=== PATIENT | male | born 1955 | race Caucasian/White ===

== ENCOUNTER 2019-06-07 16:42 | Emergency (ER) | payer BC ==
[2019-06-07] MEDS ORDERED: NORMAL SALINE 1000 ML 1,000 ML IV PRN (17:03)
[2019-06-07 18:17] LABS: ALBUMIN 4.5 g/dL (3.5-5.0); ALKALINE PHOSPHATASE 80 U/L (38-126); ANION GAP 12 (5-19); ASPARTATE AMINO TRANSFERASE 24 U/L (17-59); BILIRUBIN,TOTAL 0.6 mg/dL (0.2-1.3); BLOOD UREA NITROGEN 18 mg/dL (7-20); CALCIUM 8.7 mg/dL (8.4-10.2); CARBON DIOXIDE 21 mmol/L (22-30); CHLORIDE 105 mmol/L (98-107); GLUCOSE 204 mg/dL (75-110); POTASSIUM 4.3 mmol/L (3.6-5.0); TOTAL PROTEIN 6.9 g/dL (6.3-8.2)
[2019-06-07] MEDS ORDERED: ONDANSETRON HCL INJ/PF 4 MG/2 ML SDV IV ONE (18:23)
[2019-06-07] MEDS ORDERED: KETOROLAC TROMETHAMINE INJ/PF 30 MG/1 ML SDV IV ONE (18:24)
[2019-06-07] MEDS ORDERED: NORMAL SALINE 1000 ML 1,000 ML IV ONE (18:24)
--- NOTE | 2019-06-07 18:25 | ER Document Report ---
ED GI/ - General TRAVEL OUTSIDE OF THE U.S. IN LAST 30 DAYS: No - Related Data Home Medications: lisinopril. crestor. metformin. jardance. cymbalta. sprycel <TEQUILA RUIZ - Last Filed: 06/07/19 19:54> - General TRAVEL OUTSIDE OF THE [place] IN LAST 30 DAYS: No <CARLOS REYNOLDS - Last Filed: 06/08/19 19:29> - General Chief Complaint: Nausea/Vomiting/Diarrhea Stated Complaint: VOMITING/DIARRHEA Time Seen by Provider: 06/07/19 16:54 Primary Care Provider: JONATHAN AYALA MD [Primary Care Provider] - Follow up in 3-5 days Notes: CHIEF COMPLAINT: Abdominal pain, vomiting, diarrhea HPI: 63-year-old male presenting for vomiting and diarrhea. Reports of epigastric tenderness. Patient has a history of type 2 diabetes, hypertension, appendectomy, leukemia in remission, takes Sprycel daily for this. Patient states that he had colonoscopy 1 week ago. Patient has had continued diarrhea since that time. States that began having vomiting episodes 3 days ago continues with nausea. Did not follow back up with gastroenterology. He states that he did have an appointment with his PCP for general checkup 3 weeks ago and everything was "normal". ROS: See HPI - all other systems were reviewed and are otherwise negative Constitutional: no fever Eyes: no drainage, no blurred vision ENT: no runny nose, no sore throat Cardiovascular: no chest pain Resp: no SOB, no cough GI: Positive vomiting, positive diarrhea, positive abdominal pain : no dysuria Integumentary: no rash Allergy: no hives Musculoskeletal: no extremity pain or swelling Neurological: no numbness/tingling, no weakness MEDICATIONS: I agree with the patient medications as charted by the RN. ALLERGIES: I agree with the allergies as charted by the RN. PAST MEDICAL HISTORY/PAST SURGICAL HISTORY: Reviewed and agree as charted by RN. SOCIAL HISTORY: Reviewed and agree as charted by RN. FAMILY HISTORY: No significant familial comorbid conditions directly related to patient complaint EXAM: Reviewed vital signs as charted by RN. CONSTITUTIONAL: Alert and oriented and responds appropriately to questions. Well-appearing; well-nourished, mild distress secondary to nausea HEAD: Normocephalic; atraumatic EYES: PERRL; Conjunctivae clear, sclerae non-icteric ENT: normal nose; no rhinorrhea; slightly dry mucous membranes; pharynx without lesions noted, no uvula edema or deviation, no tonsillar hypertrophy, phonation normal NECK: Supple without meningismus; non-tender; no cervical lymphadenopathy, no masses CARD: RRR; no murmurs, no clicks, no rubs, no gallops; symmetric distal pulses RESP: Normal chest excursion without splinting or tachypnea; breath sounds clear and equal bilaterally; no wheezes, no rhonchi, no rales, pulse oximetry 98% on room air not hypoxic ABD/GI: Hyperactive bowel sounds; non-distended; soft, mild epigastric tenderness on palpation, no rebound, no guarding; no palpable organomegaly or masses. BACK: The back appears normal and is non-tender to palpation, there is no CVA tenderness EXT: Normal ROM in all joints; non-tender to palpation; no cyanosis, no effusions, no edema SKIN: Normal color for age and race; warm; dry; good turgor; no acute lesions noted NEURO: Moves all extremities equally; Motor and sensory function intact PSYCH: The patient's mood and manner are appropriate. Grooming and personal hygiene are appropriate. MDM: 63-year-old male with nausea vomiting diarrhea over the last week after having colonoscopy a week ago. Patient states that his colonoscopy was fine and there were no polyps or concerns. He appears mildly dehydrated. Screening labs ordered via triage process. Will obtain KUB to evaluate for obstructive pattern. Will give Zofran, additional IV fluids and reassess (TEQUILA RUIZ) - Related Data Allergies/Adverse Reactions: No Known Allergies Allergy (Unverified 06/07/19 17:06) Past Medical History - Social History Smoking Status: Unknown if Ever Smoked Chew tobacco use (# tins/day): No Frequency of alcohol use: None Drug Abuse: None Patient has suicidal ideation: No Patient has homicidal ideation: No <TEQUILA RUIZ - Last Filed: 06/07/19 19:54> - Social History Family History: Reviewed & Not Pertinent <CARLOS REYNOLDS - Last Filed: 06/08/19 19:29> Physical Exam - Vital signs Vitals: Temp Pulse Resp BP Pulse Ox 97.5 F 94 18 128/87 H 95 06/07/19 16:47 06/07/19 16:47 06/07/19 16:47 06/07/19 16:47 06/07/19 16:47 Course - Laboratory Result Diagrams: 06/07/19 17:30 06/07/19 17:30 <TEQUILA RUIZ - Last Filed: 06/07/19 19:54> - Laboratory Result Diagrams: 06/07/19 17:30 06/07/19 17:30 <CARLOS REYNOLDS - Last Filed: 06/08/19 19:29> - Re-evaluation Re-evalutation: 06/07/19 19:34 Patient's lab work does not show acute emergent abnormalities. Awaiting KUB. Awaiting IV fluids, antiemetics, p.o. challenge and reassessment report was given to oncoming shift to follow and disposition 06/07/19 19:54 X-ray does not show evidence of an obstructive pattern on my review. (TEQUILA RUIZ) 06/07/19 21:58 KUB shows nonobstructive gas bowel gas pattern and mild colonic stool load. I discussed this finding with Dr. Claros, my attending and he is recommending the patient take Kaopectate for his diarrhea. I discussed this with the patient and he states that he is not interested in taking Kaopectate. We will send his stool for culture. I have very low suspicion for any life-threatening etiology at this time. Follow-up precautions were given. Verbal discharge instructions were given to the patient. They verbalized understanding. They are stable for discharge. (CARLOS REYNOLDS) - Vital Signs Vital signs: Temp Pulse Resp BP Pulse Ox 97.5 F 94 20 113/65 97 06/07/19 16:47 06/07/19 16:47 06/07/19 22:01 06/07/19 21:01 06/07/19 22:01 - Laboratory Laboratory results interpreted by me: 06/07/19 06/07/19 06/07/19 17:30 17:30 20:15 RDW 14.4 H Carbon Dioxide 21 L Glucose 204 H Urine Glucose (UA) >=500 H Urine Ketones TRACE H Discharge <TEQUILA RUIZ - Last Filed: 06/07/19 19:54> <CAROLS REYNOLDS - Last Filed: 06/08/19 19:29> - Discharge Clinical Impression: Nausea, Dehydration Diarrhea Qualifiers: Diarrhea type: unspecified type Qualified Code(s): R19.7 - Diarrhea, unspecified Vomiting Qualifiers: Vomiting type: unspecified Vomiting Intractability: non-intractable Nausea presence: with nausea Qualified Code(s): R11.2 - Nausea with vomiting, unspecified Condition: Stable Disposition: HOME, SELF-CARE Instructions: Antinausea Medication ([facility]), Vomiting ([facility]) Additional Instructions: You were seen today in the emergency department for nausea, vomiting, and diarrhea. Please follow-up with your primary care provider. Make sure you stay well-hydrated. If you continue to vomit, please return to the emergency department. Diarrhea becomes unbearable, you can take the counter Imodium. Your stool has been sent for culture. Forms: Return to Work Referrals: JONATHAN AYALA MD [Primary Care Provider] - Follow up in 3-5 days
[2019-06-07 18:31] LABS: ABSOLUTE EOSINOPHILS # (AUTO) 0.1 10^3/uL (0.0-0.6); ABSOLUTE LYMPHOCYTES (AUTO) 1.1 10^3/uL (0.5-4.7); ABSOLUTE MONOCYTES (AUTO) 0.7 10^3/uL (0.1-1.4); ABSOLUTE NEUT (AUTO) 6.3 10^3/uL (1.7-8.2); BASOPHILS % (AUTO) 0.4 % (0-2); EOSINOPHILS % (AUTO) 0.8 % (0-6); HEMATOCRIT 43.7 % (37.9-51.0); LYMPHOCYTES % (AUTO) 13.1 % (13-45); MEAN CORPUSCULAR HGB CONC 34.3 g/dL (32.0-36.0); MEAN CORPUSCULAR VOLUME 93 fl (80-97); MONOCYTES % (AUTO) 8.3 % (3-13); PLATELET COUNT 184 10^3/uL (150-450); RED BLOOD COUNT 4.69 10^6/uL (4.35-5.55); RED CELL DISTRIBUTION WIDTH 14.4 % (11.5-14.0); SEGMENTED NEUTROPHILS % (AUTO) 77.4 % (42-78); TOTAL CELLS COUNTED % (AUTO) 100 %; WHITE BLOOD COUNT 8.1 10^3/uL (4.0-10.5)
--- NOTE | 2019-06-07 20:18 | RADIOLOGY REPORT (SQ) ---
EXAM DESCRIPTION: XR ABDOMEN 2 VIEWS SUPINE ERECT COMPLETED DATE/TME: 06/07/2019 18:24 CLINICAL HISTORY: 63 years, Male, N/V/D COMPARISON: None. NUMBER OF VIEWS: 2 TECHNIQUE: 2 frontal radiographs were obtained LIMITATIONS: None. FINDINGS: Gas and a mild amount of stool are noted throughout the large bowel. Scattered nondilated loops of small bowel are visible throughout the abdomen. No suspicious soft tissue calcifications or osseous anomalies are appreciated. However, there are a few scattered phleboliths projecting over the pelvic inlet. IMPRESSION: Nonobstructive bowel gas pattern. Mild colonic stool load. copyright 2010 [employer]- All Rights Reserved
[2019-06-07 20:57] LABS: APPEARANCE,URINE CLEAR; BILIRUBIN,URINE NEGATIVE (NEGATIVE); COLOR,URINE YELLOW; GLUCOSE, URINE >=500 mg/dL (NEGATIVE); KETONES,URINE TRACE mg/dL (NEGATIVE); LEUKOCYTE ESTERASE,URINE NEGATIVE (NEGATIVE); NITRITE,URINE NEGATIVE (NEGATIVE); PROTEIN,URINE NEGATIVE (NEGATIVE); URINE SPECIFIC GRAVITY 1.028; UROBILINOGEN,URINE NEGATIVE mg/dL (<2.0)
[2019-06-07] MEDS ORDERED: ONDANSETRON ODT 4 MG TAB (6 TAB/ER DISP) PO PRN (21:54)
[2019-06-07 22:31] VITALS: BP 113/65
== END 2019-06-07 22:32 | disposition home or self-care (01) ==
LOC: ER 16:42
DX: R11.2 Nausea with vomiting, unspecified (principal); R19.7 Diarrhea, unspecified; E86.0 Dehydration; R10.9 Unspecified abdominal pain; R10.816 Epigastric abdominal tenderness; E11.9 Type 2 diabetes mellitus without complications; I10 Essential (primary) hypertension; C95.91 Leukemia, unspecified, in remission; Z79.899 Other long term (current) drug therapy; Z79.84 Long term (current) use of oral hypoglycemic drugs; Z90.49 Acquired absence of other specified parts of digestive tract
CPT/HCPCS: 99284; 96361; 96374; 96375; 36415; 87086; 83690; 85025; 80053; 81001; 74019; J1885; J2405; J7030

== ENCOUNTER 2019-12-18 16:04 | Day surgery (SDC) | payer BC ==
--- NOTE | 2019-12-18 16:31 | ER Document Report ---
ED Medical Screen (RME) - General Chief Complaint: Shortness Of Breath Stated Complaint: SHORTNESS OF BREATH/CHEST TIGHTNESS Time Seen by Provider: 12/18/19 16:19 Primary Care Provider: JONATHAN AYALA MD [Primary Care Provider] - Follow up as needed TRAVEL OUTSIDE OF THE [place].S[place] IN LAST 30 DAYS: No - HPI Notes: 12/18/19 16:30 64-year-old male with history of a LL and pleural effusion requiring thoracentesis to the emergency department with complaints of progressively worsening shortness of breath and chest tightness for the past several days. He states that he called his oncologist, Dr. Kerr, at [facility] and was told to come to the emergency department yesterday but he wanted to try to wait. He states that he has been on the same medicine for a LL for about 8 years but his oncologist thinks that maybe it is causing the pleural effusions. Back in October he had similar symptoms and had to have a thoracentesis where over 1 L of fluid was drained from his lungs. He states he starting to feel the same as he did back then. He is having exertional shortness of breath and feels full in his chest. He states he feels like he is "panting as well. Denies abdominal pain, nausea vomiting, fever or chills. - Related Data Allergies/Adverse Reactions: No Known Allergies Allergy (Unverified 06/07/19 17:06) Home Medications: Sprycel, Rosuvastatin, Duloxetine Past Medical History - Past Medical History Cardiac Medical History: Reports: Hx Hypertension Endocrine Medical History: Reports: Hx Diabetes Mellitus Type 2 Physical Exam - Vital signs Vitals: Pulse Resp BP Pulse Ox 76 18 161/81 H 97 12/18/19 16:19 12/18/19 16:19 12/18/19 16:19 12/18/19 16:19 Course - Vital Signs Vital signs: Temp Pulse Resp BP Pulse Ox 76 18 161/81 H 97 12/18/19 16:19 12/18/19 16:19 12/18/19 16:19 12/18/19 16:19 Doctor's Discharge - Discharge Referrals: JONATHAN AYALA MD [Primary Care Provider] - Follow up as needed
--- NOTE | 2019-12-18 17:52 | RADIOLOGY REPORT (SQ) ---
EXAM DESCRIPTION: CT CHEST WITHOUT IMAGES COMPLETED DATE/TIME: 12/18/2019 5:31 pm REASON FOR STUDY: SOB, hx of pleural effusion COMPARISON: None. TECHNIQUE: CT scan performed of the chest without intravenous contrast. Images reviewed with lung, soft tissue and bone windows. Reconstructed coronal and sagittal MPR images reviewed. All images st ored on PACS. All CT scanners at this facility use dose modulation, iterative reconstruction, and/or weight based d osing when appropriate to reduce radiation dose to as low as reasonably achievable (ALARA). [facility]: Dose Right [facility]: CareDose [facility]: Dose Right [facility]: Teradose 4D [facility]: Smart Comr.se RADIATION DOSE: CT Rad equipment meets quality standard of care and radiation dose reduction techniq ues were employed. CTDIvol: 17.4 mGy. DLP: 682 mGy-cm. mGy. LIMITATIONS: No technical limitations. FINDINGS: LUNGS AND PLEURA: Large right pleural effusion and moderate left pleural effusion. Mild a telectasis. HILAR AND MEDIASTINAL STRUCTURES: No identified masses or abnormal nodes. No obvious aneurysm. HEART AND VASCULAR STRUCTURES: No aneurysm. No pericardial effusion. UPPER ABDOMEN: No significant findings. Limited exam. THYROID AND OTHER SOFT TISSUES: No masses. No adenopathy. BONES: No significant finding. HARDWARE: None in the chest. OTHER: No other significant findings. IMPRESSION: LARGE RIGHT PLEURAL EFFUSION AND MODERATE LEFT PLEURAL EFFUSION. TECHNICAL DOCUMENTATION: JOB ID: [id number] Quality ID # [id number]: Final reports with documentation of one or more dose reduction techniques (e.g., Au tomated exposure control, adjustment of the mA and/or kV according to patient size, use of iterative reconstruction technique) 2010 [employer]- All Rights Reserved Reading location - IP/workstation name: [email or web address]
[2019-12-18 18:21] LABS: ABSOLUTE EOSINOPHILS # (AUTO) 0.1 10^3/uL (0.0-0.6); ABSOLUTE LYMPHOCYTES (AUTO) 0.7 10^3/uL (0.5-4.7); ABSOLUTE MONOCYTES (AUTO) 0.4 10^3/uL (0.1-1.4); ABSOLUTE NEUT (AUTO) 2.1 10^3/uL (1.7-8.2); EOSINOPHILS % (AUTO) 3.6 % (0-6); HEMATOCRIT 37.1 % (37.9-51.0); HEMOGLOBIN 12.7 g/dL (13.5-17.0); LYMPHOCYTES % (AUTO) 21.1 % (13-45); MEAN CORPUSCULAR HEMOGLOBIN 32.1 pg (27.0-33.4); MEAN CORPUSCULAR HGB CONC 34.3 g/dL (32.0-36.0); MEAN CORPUSCULAR VOLUME 94 fl (80-97); MONOCYTES % (AUTO) 11.4 % (3-13); PLATELET COUNT 162 10^3/uL (150-450); RED BLOOD COUNT 3.96 10^6/uL (4.35-5.55); RED CELL DISTRIBUTION WIDTH 14.4 % (11.5-14.0); SEGMENTED NEUTROPHILS % (AUTO) 62.9 % (42-78); TOTAL CELLS COUNTED % (AUTO) 100 %; WHITE BLOOD COUNT 3.4 10^3/uL (4.0-10.5)
[2019-12-18 18:31] LABS: INTERNATIONAL RATION (INR) 1.02; PROTHROMBIN TIME 13.6 SEC (11.4-15.4)
[2019-12-18 18:32] LABS: PARTIAL THROMBOPLASTIN TIME 28.8 SEC (23.5-35.8)
[2019-12-18 18:35] LABS: ALBUMIN 4.6 g/dL (3.5-5.0); ALKALINE PHOSPHATASE 60 U/L (38-126); ANION GAP 8 (5-19); ASPARTATE AMINO TRANSFERASE 26 U/L (17-59); BILIRUBIN,DIRECT 0.3 mg/dL (0.0-0.4); BILIRUBIN,TOTAL 0.6 mg/dL (0.2-1.3); BLOOD UREA NITROGEN 13 mg/dL (7-20); CALCIUM 9.5 mg/dL (8.4-10.2); CARBON DIOXIDE 29 mmol/L (22-30); CHLORIDE 102 mmol/L (98-107); GLUCOSE 186 mg/dL (75-110); POTASSIUM 4.6 mmol/L (3.6-5.0)
[2019-12-18] MEDS ORDERED: ACETAMINOPHEN 325 MG TABLET PO ONE (20:38)
[2019-12-18] MEDS ORDERED: DIPHENHYDRAMINE HCL 50 MG/ML VIAL IV ONE (20:39)
[2019-12-18] MEDS ORDERED: METOCLOPRAMIDE HCL INJ/PF 10 MG/2 ML SDV IV ONE (20:39)
--- NOTE | 2019-12-18 20:58 | ER Document Report ---
ED General - General Chief Complaint: Shortness Of Breath Stated Complaint: SHORTNESS OF BREATH/CHEST TIGHTNESS Time Seen by Provider: 12/18/19 16:19 TRAVEL OUTSIDE OF THE [place]. IN LAST 30 DAYS: No - HPI Notes: Patient is a 64-year-old male with a history of ALL, DMII, and HTN who presents for dyspnea on exertion and shortness of breath. Patient [facility] for the same symptoms. He was diagnosed with a right pleural effusion and had a thoracentesis performed. Patient states the fluid was tested and was determined to not be cancerous. He states he had 2 w eeks of relief with no CIFUENTES and SOB before it returned. He talked with oncologist, Dr. Kerr, at [facility] who believes his chemo medication, Sprycel (dasatinib), may be the cause of his pleural effusion as it is a known side effect. His oncologist lowered his dose from 100mg to 80mg and discussed that if he has a repeat pleural effusion his medication will have to be changed Patient returned to the ED today for a worsening of his CIFUENTES. He also reports headache, unproductive cough, chest discomfort but denies fever, nausea, vomiting and abdominal pain. Patient is currently taking lasix to help prevent repeat effusions. - Related Data Allergies/Adverse Reactions: No Known Allergies Allergy (Unverified 06/07/19 17:06) Home Medications: Sprycel, Rosuvastatin, Duloxetine Past Medical History - General Information source: Patient - Social History Smoking Status: Former Smoker Frequency of alcohol use: None Drug Abuse: Marijuana Family History: Reviewed & Not Pertinent - Past Medical History Cardiac Medical History: Reports: Hx Hypertension Endocrine Medical History: Reports: Hx Diabetes Mellitus Type 2 Review of Systems - Review of Systems Constitutional: No symptoms reported EENT: No symptoms reported Cardiovascular: See HPI Respiratory: See HPI Gastrointestinal: No symptoms reported Genitourinary: No symptoms reported Male Genitourinary: No symptoms reported Musculoskeletal: No symptoms reported Skin: No symptoms reported Hematologic/Lymphatic: No symptoms reported Neurological/Psychological: See HPI Physical Exam - Vital signs Vitals: Pulse Resp BP Pulse Ox 76 18 161/81 H 97 12/18/19 16:19 12/18/19 16:19 12/18/19 16:19 12/18/19 16:19 - Notes Notes: PHYSICAL EXAMINATION: VITALS: Vitals reviewed and within normal limits. GENERAL: Well-appearing, well-nourished and in no acute distress. HEAD: Atraumatic, normocephalic. EYES: Pupils equal round and reactive to light, extraocular movements intact, sclera anicteric, conjunctiva are normal. ENT: nares patent, oropharynx clear without exudates. Moist mucous membranes. NECK: Normal range of motion, supple without lymphadenopathy. LUNGS: Breath sounds clear to auscultation bilaterally and equal. No wheezes rales or rhonchi. HEART: Regular rate and rhythm without murmurs. ABDOMEN: Soft, nontender, normoactive bowel sounds. No guarding, no rebound. No masses appreciated. EXTREMITIES: Normal range of motion, no pitting or edema. No cyanosis. NEUROLOGICAL: No focal neurological deficits. Moves all extremities spontaneously and on command. PSYCH: Normal mood, normal affect. SKIN: Warm, Dry, normal turgor, no rashes or lesions noted. Course - Re-evaluation Re-evalutation: Patient is a 64-year-old male with a history of ALL and DMII who presents with worsening dyspnea on exertion. Patient has a history of right pleural effusion with thoracentesis which is believed to be due to his chemo medication, Sprycel. On exam, lung sounds are clear to auscultation bilaterally with nonlabored respirations. Patient is complaining of headache, orders placed for Tylenol 975mg PO, Benadryl 12.5mg IV, and Reglan 10mg IV. Vital signs are within normal limits. Leukocytopenia with a WBC of 3.5. proBNP barely elevated at 129. Troponin negative. CT chest shows large right pleural effusion and moderate left pleural effusion. I discussed the patient with Dr. Boston, hospitalist, and he agrees with admission for therapeutic thoracentesis. Patient will be admitted inpatient to the medical floor. - Vital Signs Vital signs: Temp Pulse Resp BP Pulse Ox 76 12 139/86 H 98 12/18/19 16:19 12/18/19 23:01 12/18/19 23:01 12/18/19 23:01 - Laboratory Result Diagrams: 12/18/19 18:00 12/18/19 18:00 Laboratory results interpreted by me: 12/18/19 12/18/19 12/18/19 18:00 18:00 18:00 WBC 3.4 L RBC 3.96 L Hgb 12.7 L Hct 37.1 L RDW 14.4 H Glucose 186 H NT-Pro-B Natriuret Pep 129 H - Diagnostic Test Radiology reviewed: Image reviewed, Reports reviewed Radiology results interpreted by me: Chest CT 12/18/19 16:29 IMPRESSION: LARGE RIGHT PLEURAL EFFUSION AND MODERATE LEFT PLEURAL EFFUSION. - EKG Interpretation by Me Additional EKG results interpreted by me: Sinus rhythm with a rate of 66. QTc 415. Normal axis. No T wave inversions or ST segment changes in consecutive leads. Discharge - Discharge Clinical Impression: Pleural effusion Dyspnea Qualifiers: Dyspnea type: dyspnea on exertion Qualified Code(s): R06.00 - Dyspnea, unspecified ALL (acute lymphoblastic leukemia) Qualifiers: Leukemia Active/Remission status: in remission Qualified Code(s): C91.01 - Acute lymphoblastic leukemia, in remission Condition: Stable Disposition: ADMITTED INPATIENT Admitting Provider: Ludy (Hospitalist) Unit Admitted: Medical Floor
[2019-12-18 21:16] LABS: NT PRO BNP 129 pg/mL (<125)
[2019-12-18 21:19] LABS: TROPONIN I < 0.012 ng/mL
[2019-12-18] MEDS ORDERED: PROMETHAZINE HCL INJ 25 MG/1 ML VIAL IV PRN (21:56)
[2019-12-18] MEDS ORDERED: ACETAMINOPHEN 325 MG TABLET PO PRN (21:56)
[2019-12-18] MEDS ORDERED: OXYCODONE-ACETAMINOPHEN 5-325 MG TABLET PO PRN (21:56)
[2019-12-18] MEDS ORDERED: IPRATROPIUM/ALBUTEROL 0.5-2.5 MG/3 ML AMPUL NEB PRN (21:56)
[2019-12-18] MEDS ORDERED: ONDANSETRON HCL INJ/PF 4 MG/2 ML SDV IV PRN (21:56)
[2019-12-18] MEDS ORDERED: HEPARIN SOD (PORCINE) 5,000 UNIT/ML 1 ML VIAL SUBCUT SCH (22:00)
[2019-12-18] MEDS ORDERED: HYDRALAZINE HCL INJ/PF 20 MG/1 ML SDV IV PRN (22:03)
[2019-12-18] MEDS ORDERED: METOPROLOL TARTRATE PF/INJ 5 MG/5 ML SDV IV PRN (22:03)
[2019-12-18] MEDS ORDERED: GUAIFENESIN 600 MG TABLET.SA PO ONE (23:00)
[2019-12-18] MEDS ORDERED: LORAZEPAM INJ 2 MG/1 ML VIAL IV PRN (23:11)
[2019-12-19] MEDS ORDERED: DEXTROSE 40% GEL 15 GM TUBE PO PRN ×2 (04:26)
[2019-12-19] MEDS ORDERED: GLUCAGON,HUMAN RECOMB 1 MG INJ IM PRN (04:26)
[2019-12-19] MEDS ORDERED: DEXTROSE 50%-WATER 25 GM/50 ML DISP.SYRIN IV PRN ×2 (04:26)
--- NOTE | 2019-12-19 04:33 | PDOC H&P ---
History of Present Illness Admission Date/PCP: 12/18/19 21:59 JONATHAN AYALA MD History of Present Illness: RIKKI SALVADOR is a 64 year old male past medical history of hypertension, diab etes, acute lymphocytic leukemia diagnosed in 2011, on Sprycel for the last 8- 1/2 years, patient is followed by Dr. Kerr at [facility], stating that he was doing fine about a month ago he developed pleural effusion which as per his oncologist it was attributed to Sprycel, Sprycel dosage was decreased however patient continued to have dyspnea on exertion, nonproductive cough, not being able to do much without getting severely short of breath, patient presented to ED a chest CT showed recurrence of severe right-sided and left-sided pleural effusion. Hospitalist was consulted for admission. On my encounter patient is currently receiving apparent distress, denies any fever, chest pain, chills, nausea, vomiting, diarrhea, constipation or any urinary symptoms. Complaining of dyspnea on exertion associated with nonproductive cough. Patient anxious about being admitted, stating that his last thoracentesis was done as outpatient. Patient agreed to be admitted and stating that he would like to be discharged home after thoracentesis. Patient was advised that he may be sent home after thoracentesis if no adverse effect caused by thoracentesis and he is stable. Patient voiced understanding. Past Medical History Cardiac Medical History: Reports: Hypertension Endocrine Medical History: Reports: Diabetes Mellitus Type 2 Psychiatric Medical History: Denies: Depression Social History Smoking Status: Former Smoker Electronic Cigarette use?: No Last Time Smoked: 11/25/1999 Frequency of Alcohol Use: Rare Hx Recreational Drug Use: No Drugs: None Hx Prescription Drug Abuse: No Family History Family History: Reviewed & Not Pertinent Parental Family History Reviewed: Yes Children Family History Reviewed: Yes Sibling(s) Family History Reviewed.: Yes Medication/Allergy Home Medications: Duloxetine HCl [Cymbalta] 90 mg PO DAILY 12/19/19 Furosemide [Lasix 40 mg Tablet] 40 mg PO DAILY 12/19/19 Lisinopril [Prinivil 10 mg Tablet] 10 mg PO DAILY 12/19/19 Metformin HCl [Metformin HCl ER] 1,000 mg PO BID 12/19/19 Potassium Chloride [Klor-Con 10 Meq Tablet ER] 10 meq PO DAILY 12/19/19 Rosuvastatin Calcium [Crestor] 5 mg PO QHS 12/19/19 Allergies/Adverse Reactions: No Known Allergies Allergy (Unverified 06/07/19 17:06) Review of Systems Review of Systems: as per hpi Physical Exam Vital Signs: Temp Pulse Resp BP Pulse Ox 70 12 159/81 H 98 12/19/19 00:30 12/19/19 00:30 12/19/19 00:30 12/18/19 23:01 Intake & Output 12/17/19 12/18/19 12/19/19 06:59 06:59 06:59 Weight 113.9 kg General appearance: PRESENT: mild distress, well-developed, well-nourished Head exam: PRESENT: atraumatic, normocephalic Neck exam: ABSENT: carotid bruit, JVD, lymphadenopathy, thyromegaly Respiratory exam: PRESENT: decreased breath sounds, symmetrical, tachypnea, other - Dullness to percussion bilaterally.. ABSENT: rales, rhonchi, wheezes Cardiovascular exam: PRESENT: RRR. ABSENT: diastolic murmur, rubs, systolic murmur Extremities exam: PRESENT: full ROM. ABSENT: calf tenderness, clubbing, pedal edema Neurological exam: PRESENT: alert, awake, oriented to person, oriented to place, oriented to time, oriented to situation, CN II-XII grossly intact. ABSENT: motor sensory deficit Skin exam: PRESENT: dry, intact, warm. ABSENT: cyanosis, rash Results Laboratory Results: 12/18/19 18:00 12/18/19 18:00 12/18/19 12/18/19 18:00 18:00 WBC 3.4 L RBC 3.96 L Hgb 12.7 L Hct 37.1 L MCV 94 MCH 32.1 MCHC 34.3 RDW 14.4 H Plt Count 162 Seg Neutrophils % 62.9 Sodium 138.8 Potassium 4.6 Chloride 102 Carbon Dioxide 29 Anion Gap 8 BUN 13 Creatinine 0.99 Est GFR ( Amer) > 60 Glucose 186 H Calcium 9.5 Total Bilirubin 0.6 AST 26 Alkaline Phosphatase 60 Total Protein 7.0 Albumin 4.6 12/18/19 18:00 Troponin I < 0.012 NT-Pro-B Natriuret Pep 129 H Impressions: Chest CT 12/18/19 16:29 IMPRESSION: LARGE RIGHT PLEURAL EFFUSION AND MODERATE LEFT PLEURAL EFFUSION. Assessment and Plan - Diagnosis (1) Pleural effusion Is this a current diagnosis for this admission?: Yes Plan: Bilateral recurrent pleural effusion. As per patient he had a pleural effusion a month ago had thoracentesis and his cytology was negative for any malignancy and fluid analysis was negative for any infection. Per his oncologist Dr. Kerr at [facility] pleural effusion may have been caused by his chemotherapy Sprycel. His Sprycel was decreased however patient continued having dyspnea on exertion and cough. Will admit to floor, consult radiology for therapeutic and diagnostic thoracentesis. Continue supplemental oxygen, duo nebs, empiric IV antibiotics. (3) Hypertension Qualifiers: Hypertension type: essential hypertension Qualified Code(s): I10 - Essential (primary) hypertension Is this a current diagnosis for this admission?: Yes Plan: Resume home meds, PRN IV hydralazine metoprolol. Adjust meds as needed. Outpatient PCP follow-up. (4) Diabetes Qualifiers: Diabetes mellitus type: type 2 Is this a current diagnosis for this admission?: Yes Plan: No recent hemoglobin A1c available. Diabetic diet, sliding scale insulin, pre-meal insulin, basal insulin. Hypoglycemic protocol. Accu-Chek. Outpatient PCP follow-up. (5) ALL (acute lymphoblastic leukemia) Qualifiers: Leukemia Active/Remission status: in remission Qualified Code(s): C91.01 - Acute lymphoblastic leukemia, in remission Is this a current diagnosis for this admission?: Yes Plan: Has been followed by Dr. Kerr at [facility]. Has been on Sprycel for about 8.5 years. She does not want any oncologist consult on admission. Continue Sprycel, outpatient PCP and oncology follow-up. 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 Kerr at [facility]) who presented for SOB/CIFUENTES. He stated that he was doing fine until about a month ago when he developed R sided pleural effusion (s/p thoracentesis) which, per his oncologist, was attributed to Sprycel. At that time, Sprycel dosage was decreased however patient continued to have dyspnea on exertion, nonproductive cough, not being able to do much without getting severely short of breath, so he presented to ED. Chest CT showed recurrence of large right-sided and new moderate sized left-sided pleural effusion. He underwent IR guided thoracentesis of R pleural effusion with removal of 1200 mL fluid - studies, including cytology, are currently pending. He had no pneumothorax or other complications. He subsequently felt better and was discharged home in stable condition with close outpatient oncology follow up. - Time Time Spent with patient: 35 or more minutes Medications reviewed and adjusted accordingly: Yes Anticipated Discharge Disposition: Home, Self Care Anticipated Discharge Timeframe: within 36 hours
[2019-12-19] MEDS: FAMOTIDINE 20 MG TABLET PO SCH ×2 (05:47→09:25)
[2019-12-19 08:08] LABS: ABSOLUTE EOSINOPHILS # (AUTO) 0.1 10^3/uL (0.0-0.6); ABSOLUTE LYMPHOCYTES (AUTO) 0.6 10^3/uL (0.5-4.7); ABSOLUTE MONOCYTES (AUTO) 0.3 10^3/uL (0.1-1.4); ABSOLUTE NEUT (AUTO) 1.8 10^3/uL (1.7-8.2); BASOPHILS % (AUTO) 0.9 % (0-2); EOSINOPHILS % (AUTO) 4.4 % (0-6); HEMATOCRIT 34.4 % (37.9-51.0); HEMOGLOBIN 12.4 g/dL (13.5-17.0); LYMPHOCYTES % (AUTO) 21.3 % (13-45); MEAN CORPUSCULAR HEMOGLOBIN 32.9 pg (27.0-33.4); MEAN CORPUSCULAR HGB CONC 35.9 g/dL (32.0-36.0); MEAN CORPUSCULAR VOLUME 92 fl (80-97); MONOCYTES % (AUTO) 11.8 % (3-13); PLATELET COUNT 153 10^3/uL (150-450); RED BLOOD COUNT 3.75 10^6/uL (4.35-5.55); RED CELL DISTRIBUTION WIDTH 14.5 % (11.5-14.0); SEGMENTED NEUTROPHILS % (AUTO) 61.6 % (42-78); TOTAL CELLS COUNTED % (AUTO) 100 %; WHITE BLOOD COUNT 2.9 10^3/uL (4.0-10.5)
[2019-12-19 08:14] LABS: INTERNATIONAL RATION (INR) 1.06
[2019-12-19 08:15] LABS: PARTIAL THROMBOPLASTIN TIME 30.7 SEC (23.5-35.8)
--- NOTE | 2019-12-19 08:17 | PDOC CONSULTATION ---
Consultation Consult Date: 12/19/19 Provider Consulted: ISMAEL LU Consult reason:: Hematology/Oncology consultation was requested for patient on active treatment for chronic leukemia History of Present Illness Admission Date/PCP: 12/18/19 21:59 JONATHAN AYALA MD History of Present Illness: RIKKI SALVADOR is a 64 year old male past medical history of hypertension, diabetes, acute lymphocytic leukemia diagnosed in 2011, on Sprycel for the last 8-1/2 years, patient is followed by Dr. Kerr at [facility], stating that he was doing fine about a month ago he developed pleural effusion which as per his oncologist it was attributed to Sprycel, Sprycel dosage was decreased however patient continued to have dyspnea on exertion, nonproductive cough, not being able to do much without getting severely short of breath, patient presented to ED a chest CT showed recurrence of severe right-sided and left-sided pleural effusion. Sprycel has been on hold since admission. He is scheduled for thoracentesis this morning. Today, he states that he is hungry and is anxious to have the thoracentesis and go home. He understands that his primary oncologist has another treatment in mind instead of the sprycel. He is hopeful that the procedure will go well without any complications. Past Medical History Cardiac Medical History: Reports: Hypertension Endocrine Medical History: Reports: Diabetes Mellitus Type 2 Psychiatric Medical History: Denies: Depression Social History Smoking Status: Former Smoker Electronic Cigarette use?: No Last Time Smoked: 11/25/1999 Frequency of Alcohol Use: Rare Hx Recreational Drug Use: No Drugs: None Hx Prescription Drug Abuse: No Family History Family History: Reviewed & Not Pertinent Parental Family History Reviewed: Yes Children Family History Reviewed: No Sibling(s) Family History Reviewed.: Yes Medication/Allergy Allergies/Adverse Reactions: No Known Allergies Allergy (Unverified 06/07/19 17:06) Review of Systems Constitutional: PRESENT: headache(s). 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 ABSENT: weakness Hematologic/Lymphatic: ABSENT: easy bleeding Physical Exam Vital Signs: Temp Pulse Resp BP Pulse Ox 70 12 159/81 H 98 12/19/19 00:30 12/19/19 00:30 12/19/19 00:30 12/18/19 23:01 Intake & Output 12/18/19 12/19/19 12/20/19 06:59 06:59 06:59 Weight 113.9 kg General appearance: PRESENT: no acute distress, well-developed, well-nourished Exam: 64 year old male. Head exam: PRESENT: atraumatic, normocephalic Eye exam: PRESENT: EOMI, PERRLA Mouth exam: PRESENT: tongue midline Neck exam: ABSENT: lymphadenopathy, tenderness Respiratory exam: PRESENT: decreased breath sounds - Right side. Cardiovascular exam: PRESENT: RRR GI/Abdominal exam: PRESENT: normal bowel sounds, soft. ABSENT: tenderness Extremities exam: ABSENT: pedal edema Neurological exam: PRESENT: alert, awake, oriented to person, oriented to place, oriented to time, oriented to situation Psychiatric exam: PRESENT: appropriate affect Skin exam: PRESENT: normal color Results Laboratory Results: 12/18/19 18:00 12/18/19 12/18/19 18:00 18:00 WBC 3.4 L RBC 3.96 L Hgb 12.7 L Hct 37.1 L MCV 94 MCH 32.1 MCHC 34.3 RDW 14.4 H Plt Count 162 Seg Neutrophils % 62.9 Sodium 138.8 Potassium 4.6 Chloride 102 Carbon Dioxide 29 Anion Gap 8 BUN 13 Creatinine 0.99 Est GFR ( Amer) > 60 Glucose 186 H Calcium 9.5 Total Bilirubin 0.6 AST 26 Alkaline Phosphatase 60 Total Protein 7.0 Albumin 4.6 12/18/19 18:00 Troponin I < 0.012 NT-Pro-B Natriuret Pep 129 H Impressions: Chest CT 12/18/19 16:29 IMPRESSION: LARGE RIGHT PLEURAL EFFUSION AND MODERATE LEFT PLEURAL EFFUSION. Assessment & Plan - Diagnosis (1) ALL (acute lymphoblastic leukemia) Qualifiers: Leukemia Active/Remission status: in remission Qualified Code(s): C91.01 - Acute lymphoblastic leukemia, in remission Is this a current diagnosis for this admission?: Yes Plan: He will follow-up with primary oncologist on discharge. I have encouraged him to call our office if he needs anything locally. (2) Acute respiratory failure with hypoxia Is this a current diagnosis for this admission?: Yes Plan: For thoracentesis today.
[2019-12-19 09:06] LABS: ALBUMIN 3.8 g/dL (3.5-5.0); ALKALINE PHOSPHATASE 52 U/L (38-126); ANION GAP 9 (5-19); ASPARTATE AMINO TRANSFERASE 22 U/L (17-59); BILIRUBIN,DIRECT 0.3 mg/dL (0.0-0.4); BILIRUBIN,TOTAL 0.6 mg/dL (0.2-1.3); BLOOD UREA NITROGEN 14 mg/dL (7-20); CALCIUM 9.1 mg/dL (8.4-10.2); CARBON DIOXIDE 26 mmol/L (22-30); CHLORIDE 103 mmol/L (98-107); GLUCOSE 177 mg/dL (75-110); TOTAL PROTEIN 5.8 g/dL (6.3-8.2)
[2019-12-19] MEDS: INSULIN LISPRO 100 UNIT/ML 3 ML VIAL SUBCUT SCH ×2 (09:19→13:36)
[2019-12-19] MEDS ORDERED: GUAIFENESIN 600 MG TABLET.SA PO SCH (10:00)
[2019-12-19] MEDS ORDERED: DOCUSATE SODIUM 100 MG/10 ML UDC PO SCH (10:00)
[2019-12-19] MEDS ORDERED: FUROSEMIDE INJ/PF 20 MG/2 ML SDV IV ONE (10:20)
--- NOTE | 2019-12-19 13:17 | RADIOLOGY REPORT (SQ) ---
EXAM DESCRIPTION: CHEST SINGLE VIEW IMAGES COMPLETED DATE/TIME: 12/19/2019 1:08 pm REASON FOR STUDY: post right thoracentesis COMPARISON: None. EXAM PARAMETERS: NUMBER OF VIEWS: One view. TECHNIQUE: Single frontal radiographic view of the chest acquired. RADIATION DOSE: NA LIMITATIONS: None. FINDINGS: LUNGS AND PLEURA: No opacities, masses or pneumothorax. No pleural effusion. MEDIASTINUM AND HILAR STRUCTURES: No masses. Contour normal. HEART AND VASCULAR STRUCTURES: Heart normal in size. Normal vasculature. BONES: No acute findings. HARDWARE: None in the chest. OTHER: No other significant finding. IMPRESSION: No pneumothorax status post thoracentesis. TECHNICAL DOCUMENTATION: JOB ID: [id number] 2010 [employer]- All Rights Reserved Reading location - IP/workstation name: [email or web address]
[2019-12-19] MEDS ORDERED: HEPARIN SOD (PORCINE) 5,000 UNIT/ML 1 ML VIAL SUBCUT SCH (14:00)
--- NOTE | 2019-12-19 15:42 | RADIOLOGY REPORT (SQ) ---
EXAM DESCRIPTION: CHEST SINGLE VIEW IMAGES COMPLETED DATE/TIME: 12/19/2019 3:09 pm REASON FOR STUDY: 2 hour npost right thoracentesis COMPARISON: Earlier the same day. NUMBER OF VIEWS: One view. TECHNIQUE: Single frontal radiographic image of the chest acquired. LIMITATIONS: None. FINDINGS: LUNGS AND PLEURA: Stable appearance. No pneumothorax status post right thoracentesis. MEDIASTINUM AND HEART: Stable heart size and mediastinal structures. BONY STRUCTURES: No acute findings. HARDWARE: None. OTHER: No other significant finding. IMPRESSION: No pneumothorax. TECHNICAL DOCUMENTATION: JOB ID: [id number] Reading location - IP/workstation name: [email or web address]-
--- NOTE | 2019-12-19 15:43 | RADIOLOGY REPORT (SQ) ---
EXAM DESCRIPTION: U/S THORACENTESIS WITH IMAGING IMAGES COMPLETED DATE/TIME: 12/19/2019 1:41 pm REASON FOR STUDY: Bilateral pleural effusions COMPARISON: None. LIMITATIONS: None. PROCEDURE: Procedure, risks, benefit, and alternative explained to patient who then gave written con sent. The posterior right chest wall was marked using ultrasound guidance. A time-out was called fo r correct marking verification. Chest prepped and draped using sterile technique. Local anesthesia a chieved using 3.5 ml of 1% lidocaine injection. A 6fr Safe-T- Centesis set was introduced into the r ight pleural space. Fluid was aspirated. The catheter was removed and the entry site was covered wi th sterile bandage. No immediate complications noted. Images acquired during the procedure were stored on PACS. FINDINGS: ENTRY SITE: posterior right chest. FLUID VOLUME: 1200 cc FLUID ANALYSIS: Straw OTHER: Fluid sent to the lab for testing. IMPRESSION: SUCCESSFUL THORACENTESIS USING ULTRASOUND GUIDANCE. COMMENT: Patient medication list reviewed: Yes- Quality ID# [id number]:Eligible professional attests to doc umenting in the medical record they obtained, updated, or reviewed the patient's current medications. TECHNICAL DOCUMENTATION: JOB ID: [id number] 2010 [employer]- All Rights Reserved Reading location - IP/workstation name: [email or web address]
[2019-12-19 15:55] VITALS: BP 159/81
[2019-12-19 16:45] LABS: FLUID TYPE PLEURAL
[2019-12-19 16:48] LABS: FLUID APPEARANCE HAZY; FLUID COLOR YELLOW; FLUID SOURCE LUNG; FLUID VISCOSITY SLIGHTLY VISCOUS
--- NOTE | 2019-12-19 18:13 | PDOC DISCHARGE SUMMARY ---
Impression - Admit/DC Date/PCP Admission Date/Primary Care Provider: 12/18/19 21:59 JONATHAN AYALA MD Discharge Date: 12/19/19 - Discharge Diagnosis (1) ALL (acute lymphoblastic leukemia) Is this a current diagnosis for this admission?: Yes (2) Dyspnea Is this a current diagnosis for this admission?: Yes (3) Pleural effusion Is this a current diagnosis for this admission?: Yes - Assessment Summary: Mr. RIKKI SALVADOR is a 64 year old retired [employer] with past medical history of HTN, HLD, DM2 and acute lymphocytic leukemia diagnosed in 2011, on Sprycel for the last 8 years (followed by Dr. Kerr at [facility]) who presented for SOB/CIFUENTES. He stated that he was doing fine until about a month ago when he developed R sided pleural effusion (s/p thoracentesis) which, per his oncologist, was attributed to Sprycel. At that time, Sprycel dosage was decreased however patient continued to have dyspnea on exertion, nonproductive cough, not being able to do much without getting severely short of breath, so he presented to ED. Chest CT showed recurrence of large right-sided and new moderate sized left-sided pleural effusion. He underwent IR guided thoracentesis of R pleural effusion with removal of 1200 mL fluid - studies, including cytology, are currently pending. He had no pneumothorax or other complications. He subsequently felt better and was discharged home in stable condition with close outpatient oncology follow up. - Additional Information Resuscitation Status: Full Code Discharge Diet: Cardiac, Diabetic Discharge Activity: Activity As Tolerated Referrals: JONATHAN AYALA MD [Primary Care Provider] - 12/29/19 2:30 pm Home Medications: Duloxetine HCl [Cymbalta] 90 mg PO DAILY 12/19/19 Furosemide [Lasix 40 mg Tablet] 40 mg PO DAILY 12/19/19 Lisinopril [Prinivil 10 mg Tablet] 10 mg PO DAILY 12/19/19 Metformin HCl [Metformin HCl ER] 1,000 mg PO BID 12/19/19 Potassium Chloride [Klor-Con 10 Meq Tablet ER] 10 meq PO DAILY 12/19/19 Rosuvastatin Calcium [Crestor] 5 mg PO QHS 12/19/19 History of Present Illiness History of Present Illness: RIKKI SALVADOR is a 64 year old male Physical Exam Vital Signs: Temp Pulse Resp BP Pulse Ox 97.8 F 72 16 159/81 H 96 12/19/19 15:54 12/19/19 15:54 12/19/19 15:54 12/19/19 15:54 12/19/19 15:54 Intake & Output 12/18/19 12/19/19 12/20/19 06:59 06:59 06:59 Weight 113.9 kg Results Laboratory Results: WBC 2.9 10^3/uL (4.0-10.5) L 12/19/19 07:10 RBC 3.75 10^6/uL (4.35-5.55) L 12/19/19 07:10 Hgb 12.4 g/dL (13.5-17.0) L 12/19/19 07:10 Hct 34.4 % (37.9-51.0) L 12/19/19 07:10 MCV 92 fl (80-97) 12/19/19 07:10 MCH 32.9 pg (27.0-33.4) 12/19/19 07:10 MCHC 35.9 g/dL (32.0-36.0) 12/19/19 07:10 RDW 14.5 % (11.5-14.0) H 12/19/19 07:10 Plt Count 153 10^3/uL (150-450) 12/19/19 07:10 Lymph % (Auto) 21.3 % (13-45) 12/19/19 07:10 Whitley % (Auto) 11.8 % (3-13) 12/19/19 07:10 Eos % (Auto) 4.4 % (0-6) 12/19/19 07:10 Baso % (Auto) 0.9 % (0-2) 12/19/19 07:10 Absolute Neuts (auto) 1.8 10^3/uL (1.7-8.2) 12/19/19 07:10 Absolute Lymphs (auto) 0.6 10^3/uL (0.5-4.7) 12/19/19 07:10 Absolute Monos (auto) 0.3 10^3/uL (0.1-1.4) 12/19/19 07:10 Absolute Eos (auto) 0.1 10^3/uL (0.0-0.6) 12/19/19 07:10 Absolute Basos (auto) 0.0 10^3/uL (0.0-0.2) 12/19/19 07:10 Seg Neutrophils % 61.6 % (42-78) 12/19/19 07:10 PT 14.0 SEC (11.4-15.4) 12/19/19 07:10 INR 1.06 12/19/19 07:10 APTT 30.7 SEC (23.5-35.8) 12/19/19 07:10 Sodium 138.0 mmol/L (137-145) 12/19/19 07:10 Potassium 4.0 mmol/L (3.6-5.0) 12/19/19 07:10 Chloride 103 mmol/L (98-107) 12/19/19 07:10 Carbon Dioxide 26 mmol/L (22-30) 12/19/19 07:10 Anion Gap 9 (5-19) 12/19/19 07:10 BUN 14 mg/dL (7-20) 12/19/19 07:10 Creatinine 0.91 mg/dL (0.52-1.25) 12/19/19 07:10 Est GFR ( Amer) > 60 (>60) 12/19/19 07:10 Est GFR (MDRD) Non-Af > 60 (>60) 12/19/19 07:10 Glucose 177 mg/dL (75-110) H 12/19/19 07:10 POC Glucose 269 mg/dL (70-110) H 12/19/19 16:16 Calcium 9.1 mg/dL (8.4-10.2) 12/19/19 07:10 Magnesium 1.7 mg/dL (1.6-2.3) 12/19/19 07:10 Total Bilirubin 0.6 mg/dL (0.2-1.3) 12/19/19 07:10 Direct Bilirubin 0.3 mg/dL (0.0-0.4) 12/19/19 07:10 Neonat Total Bilirubin Not Reportable 12/19/19 07:10 Neonat Direct Bilirubin Not Reportable 12/19/19 07:10 Neonat Indirect Bili Not Reportable 12/19/19 07:10 AST 22 U/L (17-59) 12/19/19 07:10 ALT 15 U/L (<50) 12/19/19 07:10 Alkaline Phosphatase 52 U/L (38-126) 12/19/19 07:10 Lactate Dehydrogenase 153 U/L (120-246) 12/19/19 07:10 Troponin I < 0.012 ng/mL 12/18/19 18:00 NT-Pro-B Natriuret Pep 129 pg/mL (<125) H 12/18/19 18:00 Total Protein 5.8 g/dL (6.3-8.2) L 12/19/19 07:10 Albumin 3.8 g/dL (3.5-5.0) 12/19/19 07:10 Fluid Type PLEURAL 12/19/19 12:45 Fluid Source LUNG 12/19/19 12:45 Fluid Color YELLOW 12/19/19 12:45 Fluid Appearance HAZY 12/19/19 12:45 Fluid Viscosity SLIGHTLY VISCOUS 12/19/19 12:45 Fluid WBC 1212 /uL 12/19/19 12:45 Fluid RBC 3190 /uL 12/19/19 12:45 Fluid Seg Neutrophils 9 % 12/19/19 12:45 Fluid Lymphocytes 91 % 12/19/19 12:45 Fluid Monocytes 0 % 12/19/19 12:45 Fluid Eosinophils 0 % 12/19/19 12:45 Fluid Basophils 0 % 12/19/19 12:45 12/18/19 18:00 Troponin I < 0.012 NT-Pro-B Natriuret Pep 129 H Impressions: Chest CT 12/18/19 16:29 IMPRESSION: LARGE RIGHT PLEURAL EFFUSION AND MODERATE LEFT PLEURAL EFFUSION. Thoracentesis Ultrasound 12/18/19 22:00 IMPRESSION: SUCCESSFUL THORACENTESIS USING ULTRASOUND GUIDANCE. Chest X-Ray 12/19/19 00:00 IMPRESSION: No pneumothorax status post thoracentesis. Chest X-Ray 12/19/19 14:55 IMPRESSION: No pneumothorax. Stroke Is this a Stroke Patient?: No Acute Heart Failure Is this a Heart Failure Patient?: No
--- NOTE | 2019-12-19 21:35 | EKG REPORT ---
SEVERITY:- NORMAL ECG - SINUS RHYTHM : Confirmed by: Patricia Portillo MD 19-Dec-2019 21:33:51
== END 2019-12-19 16:56 | disposition home or self-care (01) ==
LOC: ER 16:04 → UNDOADMIN 21:59 → EH 21:59 → 5 12-19 00:10 → ASU 9 12-19 14:15 → UNDODISIN 12-19 16:45 → ASU 9 12-19 16:56
PROVIDERS: ATTEND Hospitalist
DX: C91.01 Acute lymphoblastic leukemia, in remission (principal); J96.01 Acute respiratory failure with hypoxia; J91.8 Pleural effusion in other conditions classified elsewhere; I10 Essential (primary) hypertension; E78.5 Hyperlipidemia, unspecified; E11.9 Type 2 diabetes mellitus without complications; R51 Headache; R05 Cough; G62.2 Polyneuropathy due to other toxic agents; T45.1X5S Adverse effect of antineoplastic and immunosuppressive drugs, sequela; Z79.899 Other long term (current) drug therapy; Z87.891 Personal history of nicotine dependence; Z79.84 Long term (current) use of oral hypoglycemic drugs
CPT/HCPCS: 93005; 99285; 83986; 36415; 87205; 87206; 87116; 87070; 87101; 82962; 87252; 83615 ×2; 83735; 85025 ×2; 85610 ×2; 85730 ×2; 89050; 87075; 80053 ×2; 84484; 82042; 82150; 82945; 84157; 87015; 83880; 88162; 88305 ×2; 71045; 32555; 71250; 93010; J1940

== ENCOUNTER → 2020-03-12 | Outpatient (CLI) | payer BC ==
[2020-03-12 11:29] VITALS: BP 144/85
--- NOTE | 2020-03-12 11:29 | ER [facility] ASSESSMENT REPORT ---
Intake - In the Last 14 days Have you traveled outside [place]?: No Have you been in close contact with someone CONFIRMED: Yes Worked in Healthcare?: No - Symptoms Subjective Fever(Petty feverish): No Chills: No Muscule Aches: No Runny Nose: No Sore Throat: No Cough (New or worsening chronic cough): No Shortness of breath: No Nausea or Vomiting: No Headache: No Abdominal Pain: No Diarrhea(3 or more loose stools in last 24 hours): No - Do you have any of the following Chronic lung disease: Asthma or emphysema or COPD: No Cystic Fibrosis: No Diabetes: Yes High Blood Pressure: Yes Cardiovascular Disease: Yes Chronic Kidney Disease: No Chronic Liver Disease: No Chronic blood disorder like Sickle Cell Disease: No Weak immune system due to disease or medication: Yes Neurologic condition that limits movement: Yes Developmental delay - Moderate to Severe: No Recent (within past 2 weeks) or current : No Morbid Obesity (>100 pounds over ideal weight): No - Objective Temperature: 98.2 F Pulse Rate: 78 Respiratory Rate: 18 Blood Pressure: 144/85 O2 Sat by Pulse Oximetry: 94 Objective: Given above, testing performed: If Testing Performed: Test Specimen Type Sent to General - General Information source: Patient Notes: Patient presents to the [facility] for screening for the coronavirus. Patient reports being around coworkers who tested positive recently. Patient denies any symptoms at this time. - Related Data Allergies/Adverse Reactions: No Known Allergies Allergy (Unverified 06/07/19 17:06) Past Medical History - General Information source: Patient - Social History Smoking Status: Former Smoker Family History: Reviewed & Not Pertinent - Past Medical History Cardiac Medical History: Reports: Hx Hypertension Endocrine Medical History: Reports: Hx Diabetes Mellitus Type 2 Malignancy Medical History: Reports Hx Leukemia Psychiatric Medical History: Reports: Hx Depression Past Surgical History: Reports: Other - Thoracentesis Physical Exam - Notes Notes: The patient was evaluated during the global Covid 19 pandemic, and that diagnosis was suspected/considered upon their initial presentation. Their evaluation, and testing was consistent with current guidelines for patients who present with complaints or symptoms that may be related to Covid 19. Full physical exam could not be performed due to covid 19 isolation protocols. Constitutional: Nontoxic appearance, no acute distress Eyes: Nonicteric, extraocular movements intact, sclera clear Cardiovascular: Heart rate and rhythm regular, no JVD Respiratory: Breath sounds clear bilaterally, nonlabored breathing, no use of accessory muscles, no tachypnea Gastrointestinal: Abdomen not distended Muculoskeletal: Moves all extremities well Skin: Normal color Neuro: Awake alert oriented, normal speech Psych: Normal mood and affect Diagnostic Results Laboratory Results: Patient presents with closure worrisome for possible Covid 19. Patient does not have emergency worrying symptoms such as difficulty breathing, shortness of breath, chest pain, pressure, confusion or cyanosis. Patient appears suitable for discharge as vital signs are stable and patient is nontoxic in appearance. Good return precautions have been discussed with patient, patient verbalized understanding and is agreeable with discharge plan of care at this time. Patient Education/Counseling Guidance for worsening S/SX: Patient was provided with discharge information including: As a person under investigation for Covid 19, the [place] department of Health and Human Services, division of public health advises you to adhere to the following guidance until your test results are reported to you. If your test result is positive, you will receive additional information from your provider and your local health department at that time. Remain at home until you are cleared by the health provider or public health authorities. Keep a log of visitors to your home, notify any visitors to your home of your isolation status. If you plan to move to a new address or leave the county, notify the local health department in your County. Call your doctor or seek care if you have an urgent medical need. Before seeking medical care, call ahead to get instructions from the provider before arriving at the medical office clinic or hospital. Notify them that you are being tested for the virus that causes Covid 19 so that arrangements can be made, as necessary, to prevent transmission to others in the healthcare setting. Next, notify the local health department in your county. If a medical emergency arises and you need to call 911, inform the first responders that you are being tested for the virus that causes Covid 19. Next, notify the local health department in your county. [facility] Discharge - Discharge Clinical Impression: Encounter for screening laboratory testing for COVID-19 virus in asymptomatic patient Condition: Stable Disposition: Home; Selfcare
== END ==
LOC: RDC 09:50
PROVIDERS: ATTEND Nurse Practitioner Family
DX: Z20.828 Contact with and (suspected) exposure to other viral communicable diseases (principal); I10 Essential (primary) hypertension; E11.9 Type 2 diabetes mellitus without complications; Z87.891 Personal history of nicotine dependence; Z85.6 Personal history of leukemia
CPT/HCPCS: U0003; C9803; 87635; 99201; 99211

== ENCOUNTER → 2020-04-05 | Outpatient (CLI) | payer BC ==
[2020-04-05 13:14] VITALS: BP 148/87
--- NOTE | 2020-04-05 13:14 | ER [facility] ASSESSMENT REPORT ---
Intake - In the Last 14 days Have you traveled outside [place]?: No Have you been in close contact with someone CONFIRMED: No Worked in Healthcare?: No - Symptoms Subjective Fever(Makoti feverish): No Chills: No Muscule Aches: Yes Runny Nose: Yes Sore Throat: Yes Cough (New or worsening chronic cough): Yes Shortness of breath: No Nausea or Vomiting: Yes Headache: Yes Abdominal Pain: No Diarrhea(3 or more loose stools in last 24 hours): No - Do you have any of the following Chronic lung disease: Asthma or emphysema or COPD: No Cystic Fibrosis: No Diabetes: Yes Diabetes Comment: Diabetes mellitus type 2 High Blood Pressure: Yes Cardiovascular Disease: Yes Chronic Kidney Disease: No Chronic Liver Disease: No Chronic blood disorder like Sickle Cell Disease: No Weak immune system due to disease or medication: Yes Immune System Comment: Patient has acute lymph blastic leukemia. Neurologic condition that limits movement: No Developmental delay - Moderate to Severe: No Recent (within past 2 weeks) or current : No Obesity Comment: Height 6 feet 5 inches weight 237 pounds - Objective Temperature: 98.3 F Pulse Rate: 72 Respiratory Rate: 16 Blood Pressure: 148/87 O2 Sat by Pulse Oximetry: 96 Objective: Given above, testing performed: If Testing Performed: Test Specimen Type Sent to General - General Information source: Patient Notes: Patient here at [facility] for Covid testing patient reports symptoms about 5 days ago which includes congestion fatigue sore throat cough nausea and headache. Patient has a history of high blood pressure type 2 diabetes and acute lymphoblastic leukemia. Patient does not know if he has had any known positive exposure to Covid that he is aware of. Patient's PCP is with maia Hutchins and he has not communicated with the provider since symptoms have started. Patient plans to call to the provider today. - Related Data Allergies/Adverse Reactions: No Known Allergies Allergy (Unverified 06/07/19 17:06) Past Medical History - General Information source: Patient - Quit 30 years ago - Social History Smoking Status: Former Smoker Family History: Reviewed & Not Pertinent - Past Medical History Cardiac Medical History: Reports: Hx Hypertension Endocrine Medical History: Reports: Hx Diabetes Mellitus Type 2 Malignancy Medical History: Reports Hx Leukemia Psychiatric Medical History: Reports: Hx Depression Past Surgical History: Reports: Other - Thoracentesis Physical Exam - General General appearance: Appears well, Alert In distress: None Notes: PHYSICAL EXAMINATION: GENERAL: Well-appearing and in no acute distress. HEAD: Atraumatic, normocephalic. EYES: sclera anicteric, conjunctiva are normal. ENT: nares patent. Moist mucous membranes. NECK: Normal range of motion, supple without lymphadenopathy LUNGS: CTAB and equal. No wheezes rales or rhonchi. Respirations even and unlabored lung sounds clear. HEART: Regular rate and rhythm without murmurs ABDOMEN: Soft, nontender, normal bowel sounds, no guarding. EXTREMITIES: Normal range of motion, no pitting edema. No cyanosis. NEUROLOGICAL: Cranial nerves grossly intact. Normal speech. Normal gait. PSYCH: Normal mood, normal affect. SKIN: Warm, Dry, normal turgor, no rashes or lesions noted Diagnostic Results Laboratory Results: Informed of negative rapid strep and negative rapid flu results. Pending strep culture. Pending Covid testing results. Patient provided instructions regarding Covid to include: As a person under investigation for Covid 19, the [place] department of Health and Human Services, division of public health advises you to adhere to the following guidance until your test results are reported to you. If your test result is positive, you will receive additional information from your provider and your local health department at that time. Remain at home until you are cleared by the health provider or public health authorities. Keep a log of visitors to your home, notify any visitors to your home of your isolation status. If you plan to move to a new address or leave the [facility], notify the local health department in your County. Call your doctor or seek care if you have an urgent medical need. Before seeking medical care, call ahead to get instructions from the provider before arriving at the medical office clinic or hospital. Notify them that you are being tested for the virus that causes Covid 19 so that arrangements can be made, as necessary, to prevent transmission to others in the healthcare setting. Next, notify the local health department in your county. If a medical emergency arises and you need to call 911, inform the first responders that you are being tested for the virus that causes Covid 19. Next, notify the local health department in your county. Patient Education/Counseling Counseling/Education: Patient presents with upper respiratory symptoms worrisome for possible Covid 19. Patient does not have emergency worring symptoms such as difficulty br eathing, shortness of breath, chest pain, pressure, confusion or cyanosis. Patient appears suitable for discharge. Patient instructed to follow-up with PCP Cu[facility] today. To ED for persistent or worsening symptoms. Patient's vital signs are stable and patient is nontoxic in appearance. Good return precautions have been discussed with patient, patient verbalized understanding and is agreeable with discharge plan of care at this time. [facility] Discharge - Discharge Condition: Stable Disposition: Home; Selfcare
[2020-04-05 14:20] LABS: A TYPE INFLUENZA AG NEGATIVE (NEGATIVE); B INFLUENZA AG NEGATIVE (NEGATIVE)
== END ==
LOC: RDC 12:20
PROVIDERS: ATTEND Nurse Practitioner Family
DX: Z20.822 Contact with and (suspected) exposure to COVID-19 (principal); R05 Cough; J02.9 Acute pharyngitis, unspecified; M79.10 Myalgia, unspecified site; R53.83 Other fatigue; R09.89 Other specified symptoms and signs involving the circulatory and respiratory systems; R11.0 Nausea; C91.00 Acute lymphoblastic leukemia not having achieved remission; R51.9 Headache, unspecified; E11.9 Type 2 diabetes mellitus without complications; I10 Essential (primary) hypertension; Z87.891 Personal history of nicotine dependence
CPT/HCPCS: 87070; 87880; 87804; 99211 ×2; U0003; C9803; 87635

== ENCOUNTER → 2020-04-16 | Outpatient (CLI) | payer BC ==
[~2020-04-16] MED LIST: COVID-19 VACCINE (PFIZER)/PF 30 MCG/0.3 ML VIAL IM ONE; EPINEPHRINE INJ/PF 1 MG/1 ML AMPULE IM PRN
== END ==
LOC: EMPHEALTH 09:38
PROVIDERS: ATTEND Internal Medicine
DX: Z23 Encounter for immunization (principal)
CPT/HCPCS: 91300